=== PATIENT | female | born 1985 | race Caucasian/White ===

== ENCOUNTER 2016-10-02 15:10 | Emergency (ER) | payer OTHER ==
[~2016-10-02] VITALS: Ht 172.7 cm; Wt 102.2 kg
[~2016-10-02 15:10] MED LIST: Avelox IV; BENADRYL25 MG PO; CRANBERRY200 MG PO; DUONEB3 ML IH; EXCEDRIN EXTRA1 EACH PO; EXCEDRIN1 TABLET PO; IRON325 M1 PO; KENLAOG,ARISTOC60 ML TP; LACTINEX,FLO1 PACKET PO; LASIX10 MG PO; LASIX20 MG PO; LO-DOSE ASPIRIN81 M1 PO; NOHOMEMEDS; PROZAC20 MG PO; Robitussin DM PO; SERTRALINE HCL100 MG PO; TYLENOL EXTRA500 MG PO; Tessalon Perle PO; Tylenol Regular Stre PO; ZITHROMAX500 MG PO; ZOLOFT50 M1 PO; Zoloft PO; [UNRECOGNIZED DRUG - REMARK]; [UNRECOGNIZED DRUG - REMARK]
[2016-10-02 16:27] VITALS: BP 105/61
== END 2016-10-02 16:38 | disposition home or self-care (01) ==
LOC: EME 15:10
DX: G43.909 Migraine, unspecified, not intractable, without status migrainosus (principal); R11.0 Nausea; Z86.73 Personal history of transient ischemic attack (TIA), and cerebral infarction without residual deficits
CPT/HCPCS: 99281; 99284; J1885